=== PATIENT | male | born 1955 | race Caucasian/White ===

== ENCOUNTER 2021-06-02 11:03 | Inpatient (IN) | payer MEDICARE ==
[~2021-06-02] VITALS: Ht 172.7 cm; Wt 118.2 kg
[2021-06-02 13:05] LABS: BASOPHILS # (AUTO) 0.1 X10'3 (0-0.2); BASOPHILS % (AUTO) 0.8 % (0-1); EOSINOPHILS # (AUTO) 0.1 X10'3 (0-0.9); EOSINOPHILS % (AUTO) 0.9 % (0-6); HEMATOCRIT 44.4 % (42.0-52.0); HEMOGLOBIN 14.8 g/dl (14.0-17.9); LYMPHOCYTES # (AUTO) 1.4 X10'3 (1.1-4.8); LYMPHOCYTES % (AUTO) 13.9 % (21-51); MEAN CORPUSCULAR HEMOGLOBIN 30.9 PG (27.0-31.0); MEAN CORPUSCULAR HGB CONC 33.2 g/dL (33.0-36.5); MEAN PLATELET VOLUME 6.7 FL (7.4-10.4); MONOCYTES # (AUTO) 0.9 X10'3 (0-0.9); MONOCYTES % (AUTO) 8.9 % (2-12); NEUTROPHILS # (AUTO) 7.7 X10'3 (1.8-7.7); NEUTROPHILS % (AUTO) 75.5 % (42-75); PLATELET COUNT 380 X10'3 (140-440); RED BLOOD COUNT 4.78 X10'6 (4.70-6.10); RED CELL DISTRIBUTION WIDTH 12.9 % (11.5-14.5); WHITE BLOOD COUNT 10.1 X10'3 (4.5-11.0)
[2021-06-02 13:19] LABS: ALANINE AMINOTRANSFERASE 29 U/L (12-78); ALBUMIN 3.8 G/DL (3.4-5.0); ALKALINE PHOSPHATASE 83 IU/L (46-116); ANION GAP 11 (8-16); ASPARTATE AMINO TRANSFERASE 22 U/L (10-37); BILIRUBIN,TOTAL 0.9 MG/DL (0.1-1.0); BLOOD UREA NITROGEN 20 MG/DL (7-18); BUN/CREATININE RATIO 14.9 (5.4-32.0); CHLORIDE 105 MMOL/L (99-107); CREATININE 1.34 MG/DL (0.60-1.10); GLUCOSE 121 MG/DL (70-104); POTASSIUM 4.5 MMOL/L (3.5-5.1); SODIUM 142 MMOL/L (135-145); TOTAL CARBON DIOXIDE 26.1 MMOL/L (24-32); TOTAL PROTEIN 7.7 G/DL (6.4-8.2); eGFR 53 ML/MIN
[2021-06-02] MEDS ORDERED: ondansetron/PF 4mg/2ml inj IV ONE (13:50)
[2021-06-02] MEDS ORDERED: morphine 4 MG/ML inj SYRINge IV ONE (13:50)
[2021-06-02] MEDS ORDERED: ondansetron/PF 4mg/2ml inj IV PRN ×2 (14:05→16:05)
[2021-06-02] MEDS ORDERED: potassium Cl 40MEQ/1/2NS 520ml 520 ML IV PRN ×2 (14:05)
[2021-06-02] MEDS ORDERED: potassium Cl 20 mEq SR tablet PO PRN ×2 (14:05)
[2021-06-02] MEDS ORDERED: acetaminophen 325mg tablet PO PRN (14:05)
[2021-06-02] MEDS ORDERED: magnesium 4gm in 100ml NS 100 ML IV PRN (14:05)
[2021-06-02] MEDS ORDERED: magnesium hydroxide 30ml (MOM) UD suspension PO PRN (14:05)
[2021-06-02] MEDS ORDERED: mag hydrox/Alum hydrox/simeth 30ml oral suspension PO PRN (14:05)
[2021-06-02] MEDS ORDERED: magnesium 2GM in 50ml NS 50 ML IV PRN (14:05)
[2021-06-02] MEDS ORDERED: morphine 2 MG/ML inj. syringe IV PRN ×2 (14:05→16:05)
[2021-06-02] MEDS ORDERED: MISO200T62 PO (14:49)
[2021-06-02] MEDS ORDERED: DICL-211 PO (14:49)
[2021-06-02] MEDS ORDERED: LISI40TA13 PO (14:49)
[2021-06-02] MEDS ORDERED: ATOR40TA72 PO (14:49)
[2021-06-02] MEDS ORDERED: OMEP40CA21 PO (14:49)
[2021-06-02] MEDS ORDERED: BUPIVAcaine/PF 2.5 mg/ml (0.25%) 30ml vial ONE (15:30)
[2021-06-02] MEDS ORDERED: ringers solution, lacted 1,000 ML IV SCH (16:05)
[2021-06-02] MEDS ORDERED: proCHLORperazine 10 MG/2 ml inj IV PRN (16:05)
[2021-06-02] MEDS ORDERED: morphine 4 MG/ML inj SYRINge IV PRN (16:05)
[2021-06-02] MEDS ORDERED: meperidine/PF 25mg/ml syringe IV PRN ×3 (16:05)
--- NOTE | 2021-06-02 17:47 | NUR ---
7/10 PAIN MEDS GIVEN W/ ZOFRAN FOR NAUSEA
[2021-06-02 18:00] VITALS: BP 129/74
--- NOTE | 2021-06-02 19:07 | NUR ---
REPORT RECEIVED FROM JOSHUA COUGHLIN IN OR AND PATIENT IS IN THE ROOM WAITING FOR DOCTOR PARIS TO PERFORM SURGERY. WE WILL CONTINUE TO MONITOR.
[2021-06-02] MEDS: docusate sod 100mg capsule PO SCH (19:49)
[2021-06-02] MEDS: K and/or MAG REPLACEMENT MC SCH (20:53)
[2021-06-02 20:54] LABS: PARTIAL THROMBOPLASTIN TIME 27 SECONDS (22-32)
[2021-06-02] MEDS: morphine 2 MG/ML inj. syringe IV PRN (21:25)
[2021-06-02] MEDS: normal saline 1000ml 1,000 ML IV SCH (21:25)
[2021-06-03] VITALS (24 sets, daily range): BP systolic 88–153; BP diastolic 48–81
[2021-06-03] MEDS: normal saline 1000ml 1,000 ML IV SCH ×3 (00:05→19:52)
--- NOTE | 2021-06-03 06:15 | NUR ---
Problems reprioritized. Patient report given, questions answered & plan of care reviewed with JESSICA COUGHLIN.
--- NOTE | 2021-06-03 06:57 | NUR ---
Patient in room [facility] 345. I have received report from Ak[facility]il [facility] and had the opportunity to ask questions and assume patient care.
[2021-06-03 07:22] LABS: BASOPHILS % (AUTO) 0.5 % (0-1); EOSINOPHILS # (AUTO) 0.3 X10'3 (0-0.9); EOSINOPHILS % (AUTO) 3.8 % (0-6); HEMATOCRIT 40.3 % (42.0-52.0); HEMOGLOBIN 13.9 g/dl (14.0-17.9); LYMPHOCYTES # (AUTO) 1.6 X10'3 (1.1-4.8); LYMPHOCYTES % (AUTO) 17.9 % (21-51); MEAN CORPUSCULAR HEMOGLOBIN 31.8 PG (27.0-31.0); MEAN CORPUSCULAR HGB CONC 34.6 g/dL (33.0-36.5); MEAN CORPUSCULAR VOLUME 91.9 FL (78-98); MEAN PLATELET VOLUME 6.6 FL (7.4-10.4); MONOCYTES # (AUTO) 0.9 X10'3 (0-0.9); MONOCYTES % (AUTO) 9.5 % (2-12); NEUTROPHILS # (AUTO) 6.2 X10'3 (1.8-7.7); NEUTROPHILS % (AUTO) 68.3 % (42-75); PLATELET COUNT 323 X10'3 (140-440); RED BLOOD COUNT 4.38 X10'6 (4.70-6.10); RED CELL DISTRIBUTION WIDTH 12.7 % (11.5-14.5); WHITE BLOOD COUNT 9.1 X10'3 (4.5-11.0)
[2021-06-03] MEDS: docusate sod 100mg capsule PO SCH ×2 (08:00→21:29)
[2021-06-03] MEDS: K and/or MAG REPLACEMENT MC SCH ×2 (08:00→19:28)
[2021-06-03 08:32] LABS: ALANINE AMINOTRANSFERASE 26 U/L (12-78); ALBUMIN 3.5 G/DL (3.4-5.0); ALKALINE PHOSPHATASE 82 IU/L (46-116); ANION GAP 9 (8-16); ASPARTATE AMINO TRANSFERASE 15 U/L (10-37); BILIRUBIN,TOTAL 1.1 MG/DL (0.1-1.0); BLOOD UREA NITROGEN 25 MG/DL (7-18); BUN/CREATININE RATIO 16.2 (5.4-32.0); CALCIUM 8.7 MG/DL (8.5-10.1); CHLORIDE 108 MMOL/L (99-107); CREATININE 1.54 MG/DL (0.60-1.10); GLUCOSE 110 MG/DL (70-104); MAGNESIUM 2.2 MG/DL (1.5-2.4); POTASSIUM 4.3 MMOL/L (3.5-5.1); SODIUM 143 MMOL/L (135-145); TOTAL CARBON DIOXIDE 25.6 MMOL/L (24-32); eGFR 45 ML/MIN
[2021-06-03] MEDS ORDERED: BUPIVAcaine/PF 2.5 mg/ml (0.25%) 30ml vial ONE ×2 (08:52→09:51)
[2021-06-03] MEDS ORDERED: midazolam 1 mg/ML 2ml injection ONE ×2 (08:55→10:25)
[2021-06-03] MEDS ORDERED: acetaminophen 1,000mg/100ml IV 100 ML IV PRN (09:10)
[2021-06-03] MEDS ORDERED: meperidine/PF 25mg/ml syringe IV PRN ×3 (09:10)
[2021-06-03] MEDS ORDERED: morphine 4 MG/ML inj SYRINge IV PRN (09:10)
[2021-06-03] MEDS ORDERED: labetalol 20mg/4ml (5mg/ml) syringe IV PRN (09:10)
[2021-06-03] MEDS ORDERED: ringers solution, lacted 1,000 ML IV SCH ×2 (09:10→16:05)
[2021-06-03] MEDS ORDERED: proCHLORperazine 10 MG/2 ml inj IV PRN (09:10)
[2021-06-03] MEDS ORDERED: ondansetron/PF 4mg/2ml inj IV PRN ×2 (09:10→16:05)
[2021-06-03] MEDS ORDERED: hydrALAZINE 20mg/ml inj. IV PRN (09:10)
[2021-06-03] MEDS ORDERED: morphine 2 MG/ML inj. syringe IV PRN (09:10)
[2021-06-03] MEDS ORDERED: pneumococcal 23-VAL P-sac vacc 25 mcg/0.5ml vial IMVAC ONE (10:00)
[2021-06-03] MEDS ORDERED: LIDOcaine 1% (10mg/ml) 2ml vial ONE (10:19)
[2021-06-03] MEDS ORDERED: fentaNYL /PF 50mcg/ml 5ml ampule ONE ×2 (10:25→13:55)
[2021-06-03] MEDS ORDERED: rocuronium 10mg/ml inj IV ONE ×2 (11:12→11:22)
[2021-06-03] MEDS ORDERED: ondansetron/PF 4mg/2ml inj ONE (11:12)
[2021-06-03] MEDS ORDERED: ceFAZolin 1000mg inj ONE ×3 (11:12)
[2021-06-03] MEDS ORDERED: phenylephrine 10mg/ml inj. ONE (11:12)
[2021-06-03] MEDS ORDERED: dexamethasone sod phosphate 4mg/ml inj. ONE (11:12)
[2021-06-03] MEDS ORDERED: propofol inj 20 ML IV ONE (11:12)
[2021-06-03] MEDS ORDERED: LIDOcaine 2% (20mg/ml) 5ml vial ONE (11:12)
[2021-06-03] MEDS ORDERED: albumin (Human) 5% 250ml 250 ML IV ONE ×2 (11:49)
[2021-06-03] MEDS ORDERED: morphine 10mg/ml inj. ONE (13:41)
[2021-06-03] MEDS ORDERED: BUPIVACAINE liposomal/PF 13.3 MG/ML vial IM ONE (13:48)
[2021-06-03] MEDS ORDERED: neostigmine methylsulfate 1 MG/ML 10ml vial ONE (13:51)
[2021-06-03] MEDS ORDERED: glycopyrrolate 0.2mg/ml inj ONE (13:51)
[2021-06-03] MEDS ORDERED: acetaminophen 1,000mg/100ml IV 100 ML IV ONE (13:53)
[2021-06-03] MEDS ORDERED: sugammadex 200mg/2ml injection IV ONE (14:37)
--- NOTE | 2021-06-03 14:48 | NUR ---
Received from OR via , accompanied by Anesthesiologist DR IRWIN and report given by Anesthesiolgist. AWAKENS TO VOICE. VITALS STABLE. DRESSING DI. TRUMAN WITH SM AMNT OF RED DRAINAGE IN THE BULB. NG TO LCS. CHEN WITH CLEAR URINE.
[2021-06-03] MEDS ORDERED: ipratropium/albuterol 3ml nebule IH ONE (16:05)
[2021-06-03] MEDS ORDERED: furosemide 20 MG/2 ML vial IV ONE (16:10)
--- NOTE | 2021-06-03 16:58 | NUR ---
Report called to receiving nurse. Transferred via BED Belongings . Special Issues communicated to receiving nurse. AWAKE AND ORIENTED. VITALS STABLE. DRESSING DI. SID PAIN. TO SURGICAL RM 345A AT THIS TIME.
[2021-06-03] MEDS: piperacillin/tazo 3.375gm/50ml 50 ML IV SCH (17:30)
--- NOTE | 2021-06-03 18:25 | NUR ---
Problems reprioritized. Patient report given, questions answered & plan of care reviewed with Prudence RN.
--- NOTE | 2021-06-03 19:24 | NUR ---
Patient in room [facility] 345. I have received report from JESSICA COUGHLIN and had the opportunity to ask questions and assume patient care.
[2021-06-03] MEDS: morphine 2 MG/ML inj. syringe IV PRN (21:28)
[2021-06-04] VITALS: BP 91/57
[2021-06-04] MEDS: piperacillin/tazo 3.375gm/50ml 50 ML IV SCH ×3 (00:33→15:21)
[2021-06-04] MEDS: morphine 2 MG/ML inj. syringe IV PRN ×2 (01:34→19:13)
[2021-06-04] MEDS: normal saline 1000ml 1,000 ML IV SCH ×3 (03:52→17:19)
[2021-06-04 04:00] VITALS: BP 102/64
[2021-06-04 06:19] LABS: BASOPHILS % (AUTO) 0.1 % (0-1); EOSINOPHILS % (AUTO) 0.1 % (0-6); HEMATOCRIT 31.7 % (42.0-52.0); HEMOGLOBIN 10.8 g/dl (14.0-17.9); LYMPHOCYTES % (AUTO) 9.5 % (21-51); MEAN CORPUSCULAR HEMOGLOBIN 31.8 PG (27.0-31.0); MEAN CORPUSCULAR HGB CONC 33.9 g/dL (33.0-36.5); MEAN CORPUSCULAR VOLUME 93.8 FL (78-98); MEAN PLATELET VOLUME 6.8 FL (7.4-10.4); MONOCYTES # (AUTO) 1.9 X10'3 (0-0.9); NEUTROPHILS % (AUTO) 73.3 % (42-75); PLATELET COUNT 402 X10'3 (140-440); RED BLOOD COUNT 3.38 X10'6 (4.70-6.10); RED CELL DISTRIBUTION WIDTH 12.9 % (11.5-14.5); WHITE BLOOD COUNT 10.9 X10'3 (4.5-11.0)
--- NOTE | 2021-06-04 06:33 | NUR ---
Problems reprioritized. Patient report given, questions answered & plan of care reviewed with JESSICA COUGHLIN.
--- NOTE | 2021-06-04 06:35 | NUR ---
Patient in room [facility] 345. I have received report from angélica house and had the opportunity to ask questions and assume patient care.
[2021-06-04 06:50] LABS: ALANINE AMINOTRANSFERASE 30 U/L (12-78); ALKALINE PHOSPHATASE 55 IU/L (46-116); ANION GAP 10 (8-16); ASPARTATE AMINO TRANSFERASE 36 U/L (10-37); BILIRUBIN,TOTAL 0.9 MG/DL (0.1-1.0); BLOOD UREA NITROGEN 36 MG/DL (7-18); BUN/CREATININE RATIO 13.7 (5.4-32.0); CALCIUM 7.9 MG/DL (8.5-10.1); CHLORIDE 108 MMOL/L (99-107); CREATININE 2.62 MG/DL (0.60-1.10); GLUCOSE 146 MG/DL (70-104); POTASSIUM 5.1 MMOL/L (3.5-5.1); SODIUM 143 MMOL/L (135-145); TOTAL CARBON DIOXIDE 24.6 MMOL/L (24-32); TOTAL PROTEIN 6.1 G/DL (6.4-8.2); eGFR 25 ML/MIN
[2021-06-04 07:26] LABS: PLATELET ESTIMATE NORMAL; TOTAL CELLS COUNTED 100
[2021-06-04 08:00] VITALS: BP 98/65
[2021-06-04] MEDS: K and/or MAG REPLACEMENT MC SCH ×2 (08:00→20:00)
[2021-06-04] MEDS: pantoprazole 40mg Tablet.DR PO SCH (08:58)
[2021-06-04] MEDS: docusate sod 100mg capsule PO SCH (08:59)
[2021-06-04] MEDS: atorvastatin 20mg tablet PO SCH (09:00)
[2021-06-04 11:00] VITALS: BP 104/65
--- NOTE | 2021-06-04 11:11 | NUR ---
FC DC'd per hospitalist order. 150cc's yellow urine drained. Pt tolerated well. Education provided regarding post FC removal. Pt stated understanding and willingness to comply.
[2021-06-04] MEDS: acetaminophen 325mg tablet PO PRN (12:08)
[2021-06-04] MEDS: nystatin 15 GM powder TP SCH ×2 (12:09→22:37)
[2021-06-04] MEDS ORDERED: ciprofloxacin lact 400MG/200ML 200 ML IV SCH (17:00)
[2021-06-04] MEDS: metroNIDAZOLE 500mg tablet PO SCH ×2 (17:15→22:29)
[2021-06-04 18:00] VITALS: BP 120/77
[2021-06-04] MEDS ORDERED: metroNIDAZOLE-Flagyl 500mg/NS 100 ML IV SCH (20:00)
[2021-06-04] MEDS: ciprofloxacin 250mg tablet PO SCH (22:29)
[2021-06-05] VITALS: BP 95/52
[2021-06-05] MEDS: normal saline 1000ml 1,000 ML IV SCH ×3 (00:29→16:58)
[2021-06-05] MEDS: heparin, porcine 5000 units/ml vial SQ SCH ×4 (00:38→23:17)
[2021-06-05] MEDS: morphine 2 MG/ML inj. syringe IV PRN ×3 (00:42→23:19)
--- NOTE | 2021-06-05 06:06 | NUR ---
Problems reprioritized. Patient report given, questions answered & plan of care reviewed with Chelsea COUGHLIN.
[2021-06-05 06:23] LABS: BASOPHILS % (AUTO) 0.1 % (0-1); EOSINOPHILS % (AUTO) 0.1 % (0-6); HEMATOCRIT 26.6 % (42.0-52.0); MEAN CORPUSCULAR HEMOGLOBIN 31.8 PG (27.0-31.0); MEAN CORPUSCULAR VOLUME 93.4 FL (78-98); MEAN PLATELET VOLUME 7.1 FL (7.4-10.4); MONOCYTES # (AUTO) 1.8 X10'3 (0-0.9); MONOCYTES % (AUTO) 14.4 % (2-12); NEUTROPHILS # (AUTO) 9.6 X10'3 (1.8-7.7); NEUTROPHILS % (AUTO) 77.4 % (42-75); PLATELET COUNT 346 X10'3 (140-440); RED BLOOD COUNT 2.85 X10'6 (4.70-6.10); RED CELL DISTRIBUTION WIDTH 12.7 % (11.5-14.5); WHITE BLOOD COUNT 12.4 X10'3 (4.5-11.0)
--- NOTE | 2021-06-05 06:31 | NUR ---
Patient in room [facility] 345. I have received report from CORONA COUGHLIN and had the opportunity to ask questions and assume patient care.
--- NOTE | 2021-06-05 06:33 | NUR ---
Problems reprioritized. Patient report given, questions answered & plan of care reviewed with JESSICA COUGHLIN.
[2021-06-05 06:43] LABS: ALANINE AMINOTRANSFERASE 29 U/L (12-78); ALBUMIN 2.7 G/DL (3.4-5.0); ALBUMIN/GLOBULIN RATIO 0.7 (1.1-1.5); ALKALINE PHOSPHATASE 58 IU/L (46-116); ANION GAP 11 (8-16); ASPARTATE AMINO TRANSFERASE 57 U/L (10-37); BILIRUBIN,TOTAL 0.9 MG/DL (0.1-1.0); BLOOD UREA NITROGEN 41 MG/DL (7-18); CALCIUM 7.6 MG/DL (8.5-10.1); CHLORIDE 108 MMOL/L (99-107); CREATININE 1.86 MG/DL (0.60-1.10); GLUCOSE 133 MG/DL (70-104); POTASSIUM 4.7 MMOL/L (3.5-5.1); SODIUM 144 MMOL/L (135-145); TOTAL CARBON DIOXIDE 24.7 MMOL/L (24-32); TOTAL PROTEIN 6.6 G/DL (6.4-8.2); eGFR 37 ML/MIN
[2021-06-05 08:00] VITALS: BP 116/65
[2021-06-05] MEDS: K and/or MAG REPLACEMENT MC SCH ×2 (08:00→20:00)
[2021-06-05] MEDS: pantoprazole 40mg Tablet.DR PO SCH (08:28)
[2021-06-05] MEDS: metroNIDAZOLE 500mg tablet PO SCH ×3 (08:28→21:07)
[2021-06-05] MEDS: atorvastatin 20mg tablet PO SCH (08:28)
[2021-06-05] MEDS: nystatin 15 GM powder TP SCH ×3 (08:30→21:07)
[2021-06-05] MEDS: ciprofloxacin 250mg tablet PO SCH ×2 (09:39→21:07)
--- NOTE | 2021-06-05 10:42 | NUR ---
ng removed per md order, will continue to monitor
[2021-06-05 11:00] VITALS: BP 117/67
--- NOTE | 2021-06-05 17:10 | NUR ---
Pt ambulated multiple times this shift, pt states he has not passed gas. Patient has voided x4 times this shift. Will continue to monitor
[2021-06-05 18:00] VITALS: BP 127/74
--- NOTE | 2021-06-05 18:30 | NUR ---
Patient in room [facility] 345. I have received report from CED LOPEZ and had the opportunity to ask questions and assume patient care. Addendum: 06/05/21 at 1924 by Sarah Marquez RN Amended: Links added.
--- NOTE | 2021-06-05 18:54 | NUR ---
Problems reprioritized. Patient report given, questions answered & plan of care reviewed with [facility]i [facility].
--- NOTE | 2021-06-05 22:55 | NUR ---
Pt states anxious, feels "bloated" oob amb around unit x1 pt states feelis better getting up. States would like something forpain and anxiety if ordered. linekhalif stahl pt inc of urine in bed. Addendum: 06/05/21 at 2311 by Renita Vazquez RN Amended: Links added.
--- NOTE | 2021-06-05 23:40 | NUR ---
LOW ABD DRESSING REINFORCED WITH ABD PAD AND 3INCH TAPE DUE TO SEROSANGINOUS DRAINAGE AFTER SITTING UP IN CHAIR AFTER AMBULATION.
[2021-06-06] VITALS: BP 124/72
[2021-06-06] MEDS: normal saline 1000ml 1,000 ML IV SCH ×2 (05:19→19:02)
--- NOTE | 2021-06-06 05:23 | NUR ---
ambulated 3 full laps this am total of 6 whole laps this shift. with walker and 02. pt tolerated well. no flatus at this time.
--- NOTE | 2021-06-06 06:12 | NUR ---
Student documentation: I have reviewed and agree with all interventions, assessments performed and documented by ELI JIMÉNEZ RN STUDENT.Student Medication Administration: For this medication-pass time frame, all medication were reviewed, dispensed, administered and documented per hospital policy by GRETTA FARRELL RN STUDENT. Addendum: 06/06/21 at 0613 by Sarah Marquez RN Amended: Links added.
--- NOTE | 2021-06-06 06:24 | NUR ---
Problems reprioritized. Patient report given, questions answered & plan of care reviewed with SHERON COUGHLIN. Addendum: 06/06/21 at 0625 by Sarah Marquez RN Amended: Links added.
[2021-06-06 06:51] LABS: ALANINE AMINOTRANSFERASE 23 U/L (12-78); ALBUMIN 2.6 G/DL (3.4-5.0); ALBUMIN/GLOBULIN RATIO 0.7 (1.1-1.5); ALKALINE PHOSPHATASE 61 IU/L (46-116); ANION GAP 12 (8-16); ASPARTATE AMINO TRANSFERASE 43 U/L (10-37); BASOPHILS % (AUTO) 0.2 % (0-1); BILIRUBIN,TOTAL 0.6 MG/DL (0.1-1.0); BLOOD UREA NITROGEN 29 MG/DL (7-18); CALCIUM 8.2 MG/DL (8.5-10.1); CHLORIDE 109 MMOL/L (99-107); CREATININE 1.32 MG/DL (0.60-1.10); EOSINOPHILS # (AUTO) 0.1 X10'3 (0-0.9); EOSINOPHILS % (AUTO) 0.8 % (0-6); GLUCOSE 159 MG/DL (70-104); HEMATOCRIT 24.3 % (42.0-52.0); HEMOGLOBIN 8.3 g/dl (14.0-17.9); LYMPHOCYTES # (AUTO) 1.1 X10'3 (1.1-4.8); MAGNESIUM 2.4 MG/DL (1.5-2.4); MEAN CORPUSCULAR HGB CONC 34.1 g/dL (33.0-36.5); MEAN CORPUSCULAR VOLUME 93.7 FL (78-98); MEAN PLATELET VOLUME 6.9 FL (7.4-10.4); NEUTROPHILS # (AUTO) 9.8 X10'3 (1.8-7.7); PLATELET COUNT 354 X10'3 (140-440); POTASSIUM 4.3 MMOL/L (3.5-5.1); RED BLOOD COUNT 2.59 X10'6 (4.70-6.10); RED CELL DISTRIBUTION WIDTH 12.8 % (11.5-14.5); SODIUM 145 MMOL/L (135-145); TOTAL CARBON DIOXIDE 23.9 MMOL/L (24-32); TOTAL PROTEIN 6.5 G/DL (6.4-8.2); eGFR 54 ML/MIN
[2021-06-06 08:00] VITALS: BP 139/64
[2021-06-06] MEDS: K and/or MAG REPLACEMENT MC SCH ×2 (08:00→20:00)
[2021-06-06] MEDS: atorvastatin 20mg tablet PO SCH (08:28)
[2021-06-06] MEDS: pantoprazole 40mg Tablet.DR PO SCH (08:28)
[2021-06-06] MEDS: metroNIDAZOLE 500mg tablet PO SCH (08:28)
[2021-06-06] MEDS: nystatin 15 GM powder TP SCH ×3 (08:31→22:09)
[2021-06-06] MEDS: heparin, porcine 5000 units/ml vial SQ SCH ×2 (08:31→16:17)
[2021-06-06] MEDS: ciprofloxacin 250mg tablet PO SCH (11:35)
[2021-06-06 12:00] VITALS: BP 140/74
--- NOTE | 2021-06-06 14:30 | NUR ---
Patient is not wanting to take Flagyl currently, states that he will take it in a little while. Addendum: 06/06/21 at 1619 by Amy Narvaez RN Patient refused Flagyl.
[2021-06-06 20:00] VITALS: BP 138/71
--- NOTE | 2021-06-06 23:25 | NUR ---
charge notified pt c/o wheezing lungs clear noted it in epigoltis area. Md called and orders for cxr done and resp tx after I/S. unit given and pt teaching done to use it. Rt also did teaching in regard to this.
[2021-06-06] MEDS ORDERED: ipratropium/albuterol 3ml nebule NEB PRN (23:50)
[2021-06-07] VITALS: BP 136/73
--- NOTE | 2021-06-07 00:05 | NUR ---
chest xray done and completed on pt and Rt in to evaluate him and give him respiratory tx.
[2021-06-07] MEDS: heparin, porcine 5000 units/ml vial SQ SCH ×3 (00:53→16:28)
[2021-06-07] MEDS: morphine 2 MG/ML inj. syringe IV PRN (00:54)
--- NOTE | 2021-06-07 03:42 | NUR ---
pt resting appears comfortable.
--- NOTE | 2021-06-07 04:05 | NUR ---
pt awake assisted in using urinal and void 350cc cl yellow urine. pt edematous scrotum elevated with pillow case and towel. took water after that.
[2021-06-07 06:21] LABS: BASOPHILS # (AUTO) 0.1 X10'3 (0-0.2); BASOPHILS % (AUTO) 0.9 % (0-1); EOSINOPHILS # (AUTO) 0.4 X10'3 (0-0.9); EOSINOPHILS % (AUTO) 3.1 % (0-6); HEMATOCRIT 24.7 % (42.0-52.0); HEMOGLOBIN 8.3 g/dl (14.0-17.9); LYMPHOCYTES # (AUTO) 1.6 X10'3 (1.1-4.8); LYMPHOCYTES % (AUTO) 14.2 % (21-51); MEAN CORPUSCULAR HEMOGLOBIN 31.4 PG (27.0-31.0); MEAN CORPUSCULAR HGB CONC 33.6 g/dL (33.0-36.5); MEAN CORPUSCULAR VOLUME 93.6 FL (78-98); MEAN PLATELET VOLUME 7.2 FL (7.4-10.4); MONOCYTES # (AUTO) 1.1 X10'3 (0-0.9); MONOCYTES % (AUTO) 9.6 % (2-12); NEUTROPHILS # (AUTO) 8.3 X10'3 (1.8-7.7); NEUTROPHILS % (AUTO) 72.2 % (42-75); PLATELET COUNT 426 X10'3 (140-440); RED BLOOD COUNT 2.64 X10'6 (4.70-6.10); RED CELL DISTRIBUTION WIDTH 12.7 % (11.5-14.5); WHITE BLOOD COUNT 11.5 X10'3 (4.5-11.0)
[2021-06-07 06:24] LABS: ALANINE AMINOTRANSFERASE 30 U/L (12-78); ALBUMIN 2.5 G/DL (3.4-5.0); ALBUMIN/GLOBULIN RATIO 0.6 (1.1-1.5); ALKALINE PHOSPHATASE 70 IU/L (46-116); ANION GAP 9 (8-16); ASPARTATE AMINO TRANSFERASE 38 U/L (10-37); BILIRUBIN,TOTAL 0.5 MG/DL (0.1-1.0); BLOOD UREA NITROGEN 25 MG/DL (7-18); BUN/CREATININE RATIO 20.8 (5.4-32.0); CALCIUM 8.6 MG/DL (8.5-10.1); CHLORIDE 111 MMOL/L (99-107); GLUCOSE 115 MG/DL (70-104); MAGNESIUM 2.5 MG/DL (1.5-2.4); POTASSIUM 4.4 MMOL/L (3.5-5.1); SODIUM 146 MMOL/L (135-145); TOTAL CARBON DIOXIDE 26.3 MMOL/L (24-32); TOTAL PROTEIN 6.6 G/DL (6.4-8.2); eGFR 61 ML/MIN
--- NOTE | 2021-06-07 06:35 | NUR ---
Patient in room [facility] 345. I have received report from Leida COUGHLIN and had the opportunity to ask questions and assume patient care.
[2021-06-07] MEDS: normal saline 1000ml 1,000 ML IV SCH (06:49)
--- NOTE | 2021-06-07 06:56 | NUR ---
Problems reprioritized. Patient report given, questions answered & plan of care reviewed with FELIPE COUGHLIN. Addendum: 06/07/21 at 0658 by Sarah Marquez RN Amended: Links added.
--- NOTE | 2021-06-07 06:57 | NUR ---
Patient in room [facility] 345. I have received report from Sarah COUGHLIN and had the opportunity to ask questions and assume patient care.
[2021-06-07] MEDS: atorvastatin 20mg tablet PO SCH (07:25)
[2021-06-07] MEDS: pantoprazole 40mg Tablet.DR PO SCH (07:27)
[2021-06-07] MEDS: nystatin 15 GM powder TP SCH ×3 (07:29→20:56)
[2021-06-07 08:00] VITALS: BP 141/70
[2021-06-07] MEDS: K and/or MAG REPLACEMENT MC SCH ×2 (08:00→20:00)
[2021-06-07] MEDS ORDERED: bisacodyl 10mg suppository rectal RC PRN (08:50)
[2021-06-07] MEDS ORDERED: furosemide 10 MG/1 ML 10ml inj IV ONE (09:15)
[2021-06-07 09:48] LABS: PLATELET ESTIMATE NORMAL; TOTAL CELLS COUNTED 100
[2021-06-07 10:00] VITALS: BP 136/70
--- NOTE | 2021-06-07 10:10 | NUR ---
Pt c/o SOB after quickly ambulating and getting situated in bed, and administering suppository. O2 3L NC on, Lasix given per orders. Pt states he feels anxious but calmed after med administration and slow deep breaths in thru nose, out thru mouth. O2 Sats 93%-94%. Will continue to monitor.l
[2021-06-07 11:00] VITALS: BP 137/81
--- NOTE | 2021-06-07 12:01 | NUR ---
gave report to Leida COUGHLIN
--- NOTE | 2021-06-07 12:15 | NUR ---
Patient in room [facility] 345. I have received report from Leida and had the opportunity to ask questions and assume patient care.
--- NOTE | 2021-06-07 13:00 | NUR ---
Initial: Pt admitted w/ increasing abd pain, found to have periumbilical hernia w/ SBO per EMR. Pt underwent small bowel resection and hernia repair 06/03. Pt placed on full liquid diet 06/06 w/ avg 65% of last two meals. Recommend advance to Regular diet per MD discretion. Pt may benefit from Winston smoothie BID to aid wound healing. LBM 05/28. Will continue to monitor and make recommendations as appropriate. Recs: 1. Advance to Regular diet per MD 2. Winston smoothie BID BD; pending MD approval 3. Bowel care per MD 4. Weekly wts Addendum: 06/07/21 at [address] Amended: Links added.
--- NOTE | 2021-06-07 13:40 | NUR ---
1320 Lying in bed, Pt c/o feeling SOB/anxious. Denies pain, O2 sats 94% on 2L NC, increased to 3L with O2 Sats 97%. L lung diminshed, R lung clear, some expiratory wheezing in upper airway, cleared when pt coughed. Patient wanted to sit up in chair and states he fees better now and can breath easier. Paged RT for PRN treatment. Will continue to monitor.
--- NOTE | 2021-06-07 17:05 | NUR ---
acting as clinical instructor, i reviewed student nurse charting
[2021-06-07] MEDS ORDERED: JUVEN Smoothie Arginine/Glut./Ca2+Bmb (Juven 19.3pkt) 240ml cup PO SCH (17:30)
--- NOTE | 2021-06-07 18:09 | NUR ---
Problems reprioritized. Patient report given to CED Casarez questions answered & plan of care reviewed with CED Casarez.
--- NOTE | 2021-06-07 18:40 | NUR ---
Problems reprioritized. Patient report given, questions answered & plan of care reviewed with Sarah COUGHLIN.
--- NOTE | 2021-06-07 19:04 | NUR ---
Patient in room [facility] 345. I have received report from FELIPE COUGHLIN and had the opportunity to ask questions and assume patient care. Addendum: 06/07/21 at 1905 by Sarah Marquez RN Amended: Links added.
[2021-06-07 20:00] VITALS: BP 166/76
[2021-06-07] MEDS: magnesium hydroxide 30ml (MOM) UD suspension PO SCH (20:55)
[2021-06-07] MEDS: furosemide 40mg/4ml inj IV SCH (20:55)
[2021-06-08] VITALS: BP 128/73
[2021-06-08] MEDS: heparin, porcine 5000 units/ml vial SQ SCH ×2 (01:53→08:37)
--- NOTE | 2021-06-08 05:13 | NUR ---
pt c/o pain and medicated for it with tylenol for discomfort per request
[2021-06-08] MEDS: acetaminophen 325mg tablet PO PRN (05:15)
--- NOTE | 2021-06-08 06:15 | NUR ---
Problems reprioritized. Patient report given, questions answered & plan of care reviewed with PARISA COUGHLIN. Addendum: 06/08/21 at 0713 by Sarah Marquez RN Amended: Links added.
[2021-06-08 07:00] VITALS: BP 118/51
[2021-06-08] MEDS: K and/or MAG REPLACEMENT MC SCH (08:00)
[2021-06-08] MEDS: magnesium hydroxide 30ml (MOM) UD suspension PO SCH (08:36)
[2021-06-08] MEDS: furosemide 40mg/4ml inj IV SCH (08:36)
[2021-06-08] MEDS: pantoprazole 40mg Tablet.DR PO SCH (08:36)
[2021-06-08] MEDS: atorvastatin 20mg tablet PO SCH (08:37)
[2021-06-08] MEDS: nystatin 15 GM powder TP SCH ×2 (08:37→13:00)
[2021-06-08 09:31] LABS: ALBUMIN 2.7 G/DL (3.4-5.0); BLOOD UREA NITROGEN 28 MG/DL (7-18); BUN/CREATININE RATIO 20.1 (5.4-32.0); CALCIUM 8.8 MG/DL (8.5-10.1); CREATININE 1.39 MG/DL (0.60-1.10); GLUCOSE 156 MG/DL (70-104); eGFR 51 ML/MIN
[2021-06-08 09:40] LABS: ANION GAP 6 (8-16); CHLORIDE 108 MMOL/L (99-107); POTASSIUM 4.1 MMOL/L (3.5-5.1); SODIUM 144 MMOL/L (135-145)
[2021-06-08 11:00] VITALS: BP 130/75
--- NOTE | 2021-06-08 12:13 | NUR ---
Paged Dr. Crzu PAGER ID: [phone] MESSAGE: Surgical Oscar RN ext [phone]. RE: David Bauer. Dr. Leal said patient can go home today with TRUMAN drain and follow up within 1 week.
[2021-06-08] MEDS ORDERED: FURO40TA4 PO (12:18)
[2021-06-08] MEDS ORDERED: CEPH500C2 PO (13:02)
--- NOTE | 2021-06-08 13:04 | NUR ---
Dr Leal requested that patient receive Antibiotic on discharge. Dr Leal ordered Keflex 500 mg PO Q6H #40. I advised primary RN and put medication in patients discharge. Primary RN Oscar will call into pharmacy.
--- NOTE | 2021-06-08 13:18 | NUR ---
TRUMAN drain care demonstrated to patient, patient verbalized understanding of all instructions given. Patient states "my is a PA so she knows about this too!"Instructed patient to report to the surgeon if he notice his TRUMAN drain output is significantly high. Encourage him to record the TRUMAN drain and record them.
--- NOTE | 2021-06-08 13:32 | NUR ---
Surgical abdominal wound dressing changed today, tiffanie intact. minimal amount of serosanguineous drainage on the lower portion of abdominal incision.
--- NOTE | 2021-06-08 14:29 | NUR ---
Discharge instructions given to patient, patient verbalized understanding of all the instructions. Peripheral IV removed, tip intact. New prescriptions were called in to his pharmacy of choice. Instructed patient to ensure he has all his belongings with him before leaving the hospital. A new small calibrated container to drain the TRUMAN was given to patient. Awaiting for his ride
== END 2021-06-08 15:05 | disposition home or self-care (01) | DRG 329 ==
LOC: ER 11:04 → ED HOLD 14:08 → SUR 3N 18:43
PROVIDERS: ADMIT Family Medicine; ATTEND Family Medicine
PROC: 0DNW0ZZ Release Peritoneum, Open Approach (ICD-10-PCS; 2021-06-03)
PROC: 0WQF0ZZ Repair Abdominal Wall, Open Approach (ICD-10-PCS; 2021-06-03)
PROC: 3E0234Z Introduction of Serum, Toxoid and Vaccine into Muscle, Percutaneous Approach (ICD-10-PCS; 2021-06-03)
PROC: 0DB80ZZ Excision of Small Intestine, Open Approach (ICD-10-PCS; principal; 2021-06-03 10:32)
DX: K43.0 Incisional hernia with obstruction, without gangrene (principal); N17.0 Acute kidney failure with tubular necrosis; J96.01 Acute respiratory failure with hypoxia; D62 Acute posthemorrhagic anemia; J98.11 Atelectasis; K56.7 Ileus, unspecified; E66.01 Morbid (severe) obesity due to excess calories; E78.5 Hyperlipidemia, unspecified; M54.9 Dorsalgia, unspecified; K42.0 Umbilical hernia with obstruction, without gangrene; I11.0 Hypertensive heart disease with heart failure; I27.81 Cor pulmonale (chronic); I50.9 Heart failure, unspecified; N28.9 Disorder of kidney and ureter, unspecified; K66.0 Peritoneal adhesions (postprocedural) (postinfection); Z79.899 Other long term (current) drug therapy; Z86.79 Personal history of other diseases of the circulatory system; Z80.1 Family history of malignant neoplasm of trachea, bronchus and lung; Z68.39 Body mass index [BMI] 39.0-39.9, adult; Z23 Encounter for immunization; Z88.2 Allergy status to sulfonamides; Z90.49 Acquired absence of other specified parts of digestive tract
CPT/HCPCS: 36415; 71045; 80048; 80053; 82948; 83735; 83880; 85007; 85025; 85610; 85730; 86885; 86900; 86901; 87081; 88302; 88307; 93005; 94640; 94760; 96374; 96375; 99285; A4618; A6258; A7000; C9290; C9399; G0378; J0131; J0690; J1100; J1644; J1940; J2001; J2175; J2250; J2270; J2370; J2405; J2543; J2704; J2710; J3010; J3490; J7030; J7120; P9045

== ENCOUNTER 2021-06-25 02:04 | Inpatient (IN) | payer MEDICARE, OTHER ==
[~2021-06-25] VITALS: Ht 168.9 cm; Wt 115.0 kg
[~2021-06-25 02:04] MED LIST: ATOR40TA72 PO; CEPH500C2 PO; DICL-211 PO; FURO40TA4 PO; LISI40TA13 PO; OMEP40CA21 PO
[2021-06-25 03:45] VITALS: BP 134/77
--- NOTE | 2021-06-25 04:24 | NUR ---
unmanned aircraft systems roboticist, Tanesha received report on patient from [facility] from Clint Ryan RN at 0200 on 06/25/21. VSS
--- NOTE | 2021-06-25 04:26 | NUR ---
Patient arrived on floor at 0345 by ambulance on [facility] from [facility]. VSS [id number]
--- NOTE | 2021-06-25 05:41 | NUR ---
Dr Edwards was notified of patient's arrival and he came and assessed the patient. Awaiting orders.
[2021-06-25] MEDS ORDERED: diphenhydrAMINE 50 mg/ml inj IV PRN (05:45)
[2021-06-25] MEDS ORDERED: bisacodyl 10mg suppository rectal RC PRN (05:45)
[2021-06-25] MEDS ORDERED: mag hydrox/Alum hydrox/simeth 30ml oral suspension PO PRN (05:45)
[2021-06-25] MEDS ORDERED: ondansetron 4mg rapidly disintigrating tab PO PRN (05:45)
[2021-06-25] MEDS ORDERED: morphine 2 MG/ML inj. syringe IV PRN ×2 (05:45)
[2021-06-25] MEDS ORDERED: diphenhydrAMINE 25mg capsule PO PRN (05:45)
[2021-06-25] MEDS ORDERED: HYDROmorphone inj. 0.5 MG/0.5 ML DISP.SYRIN IV PRN (05:45)
[2021-06-25] MEDS ORDERED: magnesium hydroxide 30ml (MOM) UD suspension PO PRN (05:45)
[2021-06-25] MEDS ORDERED: acetaminophen 325mg tablet PO PRN ×2 (05:45)
[2021-06-25] MEDS ORDERED: acetaminophen 650mg rectal suppository RC PRN (05:45)
[2021-06-25] MEDS ORDERED: ondansetron/PF 4mg/2ml inj IV PRN (05:45)
[2021-06-25] MEDS ORDERED: vancomycin/NS 1 GM ADD-VANTAGE 250 ML IV ONE (06:10)
--- NOTE | 2021-06-25 06:30 | NUR ---
Problems reprioritized. Patient report given, questions answered & plan of care reviewed with CED Killian.
[2021-06-25] MEDS: normal saline 1000ml 1,000 ML IV SCH ×2 (06:56→16:07)
[2021-06-25 07:08] LABS: BASOPHILS # (AUTO) 0.1 X10'3 (0-0.2); BASOPHILS % (AUTO) 0.8 % (0-1); EOSINOPHILS # (AUTO) 0.3 X10'3 (0-0.9); EOSINOPHILS % (AUTO) 1.5 % (0-6); LYMPHOCYTES % (AUTO) 11.8 % (21-51); MEAN CORPUSCULAR HEMOGLOBIN 30.2 PG (27.0-31.0); MEAN CORPUSCULAR HGB CONC 33.4 g/dL (33.0-36.5); MEAN CORPUSCULAR VOLUME 90.4 FL (78-98); MEAN PLATELET VOLUME 6.7 FL (7.4-10.4); MONOCYTES # (AUTO) 1.9 X10'3 (0-0.9); MONOCYTES % (AUTO) 11.7 % (2-12); NEUTROPHILS # (AUTO) 12.3 X10'3 (1.8-7.7); NEUTROPHILS % (AUTO) 74.2 % (42-75); PLATELET COUNT 575 X10'3 (140-440); RED BLOOD COUNT 1.71 X10'6 (4.70-6.10); RED CELL DISTRIBUTION WIDTH 14.3 % (11.5-14.5); WHITE BLOOD COUNT 16.6 X10'3 (4.5-11.0)
--- NOTE | 2021-06-25 07:15 | NUR ---
Dr Cowan rounded orders obtained for wound care. Anticipate Pt will need approved for [place] for DC .
[2021-06-25 07:19] LABS: HEMATOCRIT 15.5 % (42.0-52.0); HEMOGLOBIN 5.2 g/dl (14.0-17.9)
[2021-06-25 07:22] LABS: PARTIAL THROMBOPLASTIN TIME 23 SECONDS (22-32)
--- NOTE | 2021-06-25 07:23 | NUR ---
PAGER ID: [phone] MESSAGE: David Bauer [id number] critical value H&h 5.2 and 15.5. Maria D [id number]
[2021-06-25 07:29] LABS: ALANINE AMINOTRANSFERASE 20 U/L (12-78); ALBUMIN 2.5 G/DL (3.4-5.0); ALBUMIN/GLOBULIN RATIO 0.6 (1.1-1.5); ALKALINE PHOSPHATASE 85 IU/L (46-116); ANION GAP 7 (8-16); ASPARTATE AMINO TRANSFERASE 16 U/L (10-37); BILIRUBIN,TOTAL 0.7 MG/DL (0.1-1.0); BLOOD UREA NITROGEN 20 MG/DL (7-18); BUN/CREATININE RATIO 15.2 (5.4-32.0); CALCIUM 8.3 MG/DL (8.5-10.1); CHLORIDE 106 MMOL/L (99-107); CREATININE 1.32 MG/DL (0.60-1.10); GLUCOSE 95 MG/DL (70-104); MAGNESIUM 2.4 MG/DL (1.5-2.4); PHOSPHORUS 3.6 MG/DL (2.3-4.5); POTASSIUM 4.4 MMOL/L (3.5-5.1); SODIUM 139 MMOL/L (135-145); TOTAL CARBON DIOXIDE 26.1 MMOL/L (24-32); TOTAL PROTEIN 6.7 G/DL (6.4-8.2); eGFR 54 ML/MIN
[2021-06-25 07:43] LABS: HEMOGLOBIN A1C 4.9 % (4.5-6.2)
[2021-06-25 08:00] VITALS: BP 161/101
[2021-06-25] MEDS: docusate sod 100mg capsule PO SCH ×2 (08:00→19:45)
[2021-06-25] MEDS ORDERED: vancomycin/NS 1 GM ADD-VANTAGE 250 ML IV SCH (08:00)
[2021-06-25] MEDS: HYDROcodone/acetaminophen 10/325mg tab PO PRN ×2 (10:25→16:09)
[2021-06-25] MEDS: pantoprazole 40 MG vial IV SCH (11:08)
[2021-06-25] MEDS: piperacillin/tazo 4.5gm/100ml 100 ML IV SCH ×2 (11:08→15:30)
[2021-06-25] MEDS ORDERED: FURO40TA4 PO (11:16)
[2021-06-25 11:26] LABS: HEMATOCRIT 28.8 % (42.0-52.0); HEMOGLOBIN 9.6 g/dl (14.0-17.9); MEAN CORPUSCULAR HEMOGLOBIN 30.2 PG (27.0-31.0); MEAN CORPUSCULAR HGB CONC 33.2 g/dL (33.0-36.5); MEAN CORPUSCULAR VOLUME 90.8 FL (78-98); MEAN PLATELET VOLUME 6.6 FL (7.4-10.4); PLATELET COUNT 396 X10'3 (140-440); RED BLOOD COUNT 3.17 X10'6 (4.70-6.10); RED CELL DISTRIBUTION WIDTH 14.4 % (11.5-14.5); WHITE BLOOD COUNT 11.5 X10'3 (4.5-11.0)
[2021-06-25 12:00] VITALS: BP 133/61
--- NOTE | 2021-06-25 15:49 | NUR ---
Called surgeon to clarify wound care orders. MD notified of firmness throughout abdomen. states just a loose thread to prevent clot is acceptable. Cannot see cavity to pack.
--- NOTE | 2021-06-25 19:00 | NUR ---
Patient in room ARI[facility] 347. I have received report from Maria D COUGHLIN and had the opportunity to ask questions and assume patient care.
[2021-06-25] MEDS: lactobacillus rhamnosus 10,000 MMU CELLS/CAPSULE PO SCH (19:45)
[2021-06-25] MEDS: Dakins solution (1/4 strength) 473ml solution TP SCH (19:45)
[2021-06-25 20:00] VITALS: BP 124/61
[2021-06-25] MEDS ORDERED: temazepam 15mg capsule PO PRN (21:00)
[2021-06-25] MEDS: vancomycin/NS 1 GM ADD-VANTAGE 250 ML IV SCH (22:25)
[2021-06-25 23:50] VITALS: BP 127/62
[2021-06-26] MEDS: piperacillin/tazo 4.5gm/100ml 100 ML IV SCH ×4 (00:47→23:59)
[2021-06-26] MEDS: HYDROcodone/acetaminophen 10/325mg tab PO PRN ×3 (01:56→22:35)
[2021-06-26] MEDS: normal saline 1000ml 1,000 ML IV SCH ×3 (04:59→17:29)
[2021-06-26 06:24] LABS: BASOPHILS % (AUTO) 0.6 % (0-1); EOSINOPHILS # (AUTO) 0.5 X10'3 (0-0.9); EOSINOPHILS % (AUTO) 6.3 % (0-6); HEMATOCRIT 29.3 % (42.0-52.0); LYMPHOCYTES # (AUTO) 1.3 X10'3 (1.1-4.8); LYMPHOCYTES % (AUTO) 17.1 % (21-51); MEAN CORPUSCULAR HEMOGLOBIN 30.6 PG (27.0-31.0); MEAN CORPUSCULAR VOLUME 89.8 FL (78-98); MEAN PLATELET VOLUME 6.4 FL (7.4-10.4); MONOCYTES # (AUTO) 0.6 X10'3 (0-0.9); MONOCYTES % (AUTO) 8.5 % (2-12); NEUTROPHILS # (AUTO) 5.1 X10'3 (1.8-7.7); NEUTROPHILS % (AUTO) 67.5 % (42-75); PLATELET COUNT 389 X10'3 (140-440); RED BLOOD COUNT 3.27 X10'6 (4.70-6.10); RED CELL DISTRIBUTION WIDTH 14.3 % (11.5-14.5); WHITE BLOOD COUNT 7.5 X10'3 (4.5-11.0)
[2021-06-26 06:35] LABS: ALANINE AMINOTRANSFERASE 17 U/L (12-78); ALBUMIN 2.3 G/DL (3.4-5.0); ALBUMIN/GLOBULIN RATIO 0.5 (1.1-1.5); ALKALINE PHOSPHATASE 107 IU/L (46-116); ANION GAP 7 (8-16); ASPARTATE AMINO TRANSFERASE 14 U/L (10-37); BILIRUBIN,TOTAL 0.4 MG/DL (0.1-1.0); BLOOD UREA NITROGEN 19 MG/DL (7-18); BUN/CREATININE RATIO 14.1 (5.4-32.0); CALCIUM 8.6 MG/DL (8.5-10.1); CHLORIDE 107 MMOL/L (99-107); CHOL/HDL RATIO 3.9 (0.00-4.99); CHOLESTEROL 152 MG/DL (0-200); CREATININE 1.35 MG/DL (0.60-1.10); GLUCOSE 100 MG/DL (70-104); HDL CHOLESTEROL 39 MG/DL (35-60); LDL CHOLESTEROL 90 MG/DL (50-100); POTASSIUM 4.4 MMOL/L (3.5-5.1); SODIUM 141 MMOL/L (135-145); TOTAL CARBON DIOXIDE 26.9 MMOL/L (24-32); TOTAL PROTEIN 6.7 G/DL (6.4-8.2); TRIGLYCERIDES 101 MG/DL (20-135); eGFR 53 ML/MIN
--- NOTE | 2021-06-26 06:36 | NUR ---
Problems reprioritized. Patient report given, questions answered & plan of care reviewed with Chelsea COUGHLIN.
--- NOTE | 2021-06-26 06:52 | NUR ---
Patient in room ARIAN 347. I have received report from jane house and had the opportunity to ask questions and assume patient care.
[2021-06-26] MEDS: lactobacillus rhamnosus 10,000 MMU CELLS/CAPSULE PO SCH ×2 (07:46→20:26)
[2021-06-26] MEDS: pantoprazole 40 MG vial IV SCH (07:47)
[2021-06-26] MEDS: docusate sod 100mg capsule PO SCH ×2 (07:47→20:26)
[2021-06-26 08:00] VITALS: BP 116/65
[2021-06-26] MEDS: Dakins solution (1/4 strength) 473ml solution TP SCH ×2 (08:04→20:00)
[2021-06-26] MEDS: vancomycin/NS 1 GM ADD-VANTAGE 250 ML IV SCH ×2 (09:11→20:38)
[2021-06-26 11:00] VITALS: BP 111/76
[2021-06-26 19:00] VITALS: BP 117/58
[2021-06-26] MEDS: LIDOCAINE 5% OINTMENT 35GM TP SCH (20:26)
[2021-06-26] MEDS ORDERED: VANCOMYCIN LEVEL IV ONE (20:30)
[2021-06-27] VITALS (18 sets, daily range): BP systolic 101–162; BP diastolic 59–108
--- NOTE | 2021-06-27 05:24 | NUR ---
Student documentation: I have reviewed and agree with all interventions, assessments performed and documented by [Walter CORONADO]. Student Medication Administration: For this medication-pass time frame, all medication were reviewed, dispensed, administered and documented per hospital policy by [Walter CORONADO].
[2021-06-27] MEDS ORDERED: BUPIVAcaine/PF 2.5 mg/ml (0.25%) 30ml vial ONE (05:34)
[2021-06-27] MEDS: normal saline 1000ml 1,000 ML IV SCH ×2 (05:36→16:48)
[2021-06-27 06:38] LABS: BASOPHILS % (AUTO) 0.8 % (0-1); EOSINOPHILS # (AUTO) 0.5 X10'3 (0-0.9); EOSINOPHILS % (AUTO) 8.2 % (0-6); HEMATOCRIT 29.2 % (42.0-52.0); HEMOGLOBIN 9.9 g/dl (14.0-17.9); LYMPHOCYTES # (AUTO) 1.2 X10'3 (1.1-4.8); LYMPHOCYTES % (AUTO) 21.6 % (21-51); MEAN CORPUSCULAR HEMOGLOBIN 29.9 PG (27.0-31.0); MEAN CORPUSCULAR HGB CONC 33.8 g/dL (33.0-36.5); MEAN CORPUSCULAR VOLUME 88.6 FL (78-98); MEAN PLATELET VOLUME 6.7 FL (7.4-10.4); MONOCYTES # (AUTO) 0.5 X10'3 (0-0.9); MONOCYTES % (AUTO) 9.1 % (2-12); NEUTROPHILS # (AUTO) 3.4 X10'3 (1.8-7.7); NEUTROPHILS % (AUTO) 60.3 % (42-75); PLATELET COUNT 367 X10'3 (140-440); WHITE BLOOD COUNT 5.7 X10'3 (4.5-11.0)
[2021-06-27 07:21] LABS: ALANINE AMINOTRANSFERASE 17 U/L (12-78); ALBUMIN 2.4 G/DL (3.4-5.0); ALBUMIN/GLOBULIN RATIO 0.6 (1.1-1.5); ALKALINE PHOSPHATASE 75 IU/L (46-116); ANION GAP 9 (8-16); ASPARTATE AMINO TRANSFERASE 18 U/L (10-37); BILIRUBIN,TOTAL 0.4 MG/DL (0.1-1.0); BLOOD UREA NITROGEN 15 MG/DL (7-18); CALCIUM 8.6 MG/DL (8.5-10.1); CHLORIDE 108 MMOL/L (99-107); CREATININE 1.25 MG/DL (0.60-1.10); GLUCOSE 94 MG/DL (70-104); POTASSIUM 4.4 MMOL/L (3.5-5.1); SODIUM 142 MMOL/L (135-145); TOTAL CARBON DIOXIDE 24.8 MMOL/L (24-32); TOTAL PROTEIN 6.7 G/DL (6.4-8.2); eGFR 58 ML/MIN
[2021-06-27] MEDS: Dakins solution (1/4 strength) 473ml solution TP SCH ×2 (07:44→20:00)
[2021-06-27] MEDS: pantoprazole 40mg Tablet.DR PO SCH (07:52)
[2021-06-27] MEDS: docusate sod 100mg capsule PO SCH ×2 (07:52→20:00)
[2021-06-27] MEDS: lactobacillus rhamnosus 10,000 MMU CELLS/CAPSULE PO SCH ×2 (07:52→21:10)
[2021-06-27] MEDS: piperacillin/tazo 4.5gm/100ml 100 ML IV SCH ×3 (07:52→23:22)
[2021-06-27] MEDS: LIDOCAINE 5% OINTMENT 35GM TP SCH ×2 (08:10→20:00)
[2021-06-27] MEDS: VANCOmycin 1250MG/NS 250ml Bag 250 ML IV SCH ×2 (10:54→21:11)
--- NOTE | 2021-06-27 12:57 | NUR ---
pt to OR via bed report given to Rosalee COUGHLIN
[2021-06-27] MEDS ORDERED: flumazenil 0.1 mg/ml inj. IV ONE (13:17)
[2021-06-27] MEDS ORDERED: sevoflurane 250ml liquid IH ONE (13:17)
[2021-06-27] MEDS ORDERED: ondansetron/PF 4mg/2ml inj ONE (13:17)
[2021-06-27] MEDS ORDERED: midazolam 1 mg/ML 2ml injection ONE (13:18)
[2021-06-27] MEDS ORDERED: fentaNYL/PF 50MCG/1 ML 2ML syringe ONE (13:18)
[2021-06-27] MEDS ORDERED: meperidine/PF 25mg/ml syringe IV PRN ×3 (13:45)
[2021-06-27] MEDS ORDERED: morphine 2 MG/ML inj. syringe IV PRN (13:45)
[2021-06-27] MEDS ORDERED: morphine 4 MG/ML inj SYRINge IV PRN (13:45)
[2021-06-27] MEDS ORDERED: ondansetron/PF 4mg/2ml inj IV PRN (13:45)
[2021-06-27] MEDS ORDERED: ringers solution, lacted 1,000 ML IV SCH (13:45)
[2021-06-27] MEDS ORDERED: proCHLORperazine 10 MG/2 ml inj IV PRN (13:45)
[2021-06-27] MEDS ORDERED: propofol inj 20 ML IV ONE (13:54)
[2021-06-27] MEDS ORDERED: rocuronium 10mg/ml inj IV ONE (13:54)
[2021-06-27] MEDS ORDERED: LIDOcaine 2% (20mg/ml) 5ml vial ONE (13:54)
[2021-06-27] MEDS ORDERED: sugammadex 200mg/2ml injection IV ONE ×2 (13:55)
--- NOTE | 2021-06-27 14:20 | NUR ---
Received from OR via , accompanied by Anesthesiologist DR AGUILAR and report given by Anesthesiolgist. PT PRESENTS WITH 20 G RIGHT FOREARM, ABD DRESSSING DRY AND INTACT WITH WOUND VAC. VSS Addendum: 06/27/21 at 1436 by Sarah Romero RN, RN Amended: Links added.
[2021-06-27] MEDS ORDERED: ipratropium/albuterol 3ml nebule NEB PRN (14:25)
--- NOTE | 2021-06-27 14:51 | NUR ---
received report from Sarah in recovery, Pt returning to room via bed.
--- NOTE | 2021-06-27 15:00 | NUR ---
Report called to receiving nurse OANH COUGHLIN. Transferred via HOSPITAL BED, PT SENT TO ROOM 347B WITH GLASSES, OTHER Belongings WERE LEFT IN [facility]'S ROOM 347B. BED LOCKED AND IN LOW POSITION, WITH CALL LIGHT IN REACH. OANH COUGHLIN AT BEDSIDE TO ERASTO PT. . Special Issues communicated to receiving nurse. Addendum: 06/27/21 at 1510 by Sarah Romero RN RN Amended: Links added.
--- NOTE | 2021-06-27 18:30 | NUR ---
Patient in room ARIAN 347. I have received report from Zeenat COUGHLIN and had the opportunity to ask questions and assume patient care.
--- NOTE | 2021-06-27 18:42 | NUR ---
Problems reprioritized. Patient report given, questions answered & plan of care reviewed with CED Nava.
[2021-06-27] MEDS: HYDROcodone/acetaminophen 10/325mg tab PO PRN (21:34)
--- NOTE | 2021-06-27 22:30 | NUR ---
Jv not needed now as patient has a wound vac.
[2021-06-28] VITALS: BP 118/58
[2021-06-28] MEDS: HYDROcodone/acetaminophen 5mg/325mg tablet PO PRN ×4 (01:52→22:14)
[2021-06-28] MEDS: normal saline 1000ml 1,000 ML IV SCH (03:45)
[2021-06-28 05:00] VITALS: BP 128/67
--- NOTE | 2021-06-28 06:10 | NUR ---
Problems reprioritized. Patient report given, questions answered & plan of care reviewed with Ivan RN.
[2021-06-28 06:11] LABS: BASOPHILS % (AUTO) 0.6 % (0-1); EOSINOPHILS # (AUTO) 0.4 X10'3 (0-0.9); EOSINOPHILS % (AUTO) 6.6 % (0-6); HEMATOCRIT 29.6 % (42.0-52.0); HEMOGLOBIN 9.9 g/dl (14.0-17.9); LYMPHOCYTES # (AUTO) 1.5 X10'3 (1.1-4.8); LYMPHOCYTES % (AUTO) 23.1 % (21-51); MEAN CORPUSCULAR HEMOGLOBIN 29.6 PG (27.0-31.0); MEAN CORPUSCULAR HGB CONC 33.4 g/dL (33.0-36.5); MEAN CORPUSCULAR VOLUME 88.8 FL (78-98); MEAN PLATELET VOLUME 6.6 FL (7.4-10.4); MONOCYTES # (AUTO) 0.7 X10'3 (0-0.9); MONOCYTES % (AUTO) 10.2 % (2-12); NEUTROPHILS # (AUTO) 3.8 X10'3 (1.8-7.7); NEUTROPHILS % (AUTO) 59.5 % (42-75); PLATELET COUNT 423 X10'3 (140-440); RED BLOOD COUNT 3.33 X10'6 (4.70-6.10); RED CELL DISTRIBUTION WIDTH 14.6 % (11.5-14.5); WHITE BLOOD COUNT 6.4 X10'3 (4.5-11.0)
--- NOTE | 2021-06-28 06:30 | NUR ---
Patient in room [facility] 347. I have received report from Brandy COUGHLIN and had the opportunity to ask questions and assume patient care.
--- NOTE | 2021-06-28 06:38 | NUR ---
Patient in room 347b is a hard stick, 4 trys at getting patient iv access with no success. Need help. Thanks. this page sent to Pic[facility] nurse.
[2021-06-28] MEDS: pantoprazole 40mg Tablet.DR PO SCH (07:23)
[2021-06-28] MEDS: lactobacillus rhamnosus 10,000 MMU CELLS/CAPSULE PO SCH ×2 (07:23→20:10)
[2021-06-28] MEDS: docusate sod 100mg capsule PO SCH ×2 (07:24→20:10)
[2021-06-28] MEDS: LIDOCAINE 5% OINTMENT 35GM TP SCH ×2 (07:25→20:10)
[2021-06-28 08:00] VITALS: BP 116/53
[2021-06-28] MEDS: Dakins solution (1/4 strength) 473ml solution TP SCH ×2 (08:00→20:00)
[2021-06-28] MEDS: VANCOmycin 1250MG/NS 250ml Bag 250 ML IV SCH ×3 (09:16→22:15)
--- NOTE | 2021-06-28 09:16 | NUR ---
Dr Leal waiting for patients wound culture results to come back. Per Dr Leal possible discharge tomorrow. Per Dr Leal ok to have wound care change wound vac today so we can get measurements for home wound vac approval. Spoke to Mary with wound care and she will notify the in patient wound RNRudi Barraza with case management aware.
[2021-06-28 11:00] VITALS: BP 159/74
[2021-06-28 11:08] LABS: ALBUMIN 2.3 G/DL (3.4-5.0); ANION GAP 9 (8-16); BLOOD UREA NITROGEN 13 MG/DL (7-18); BUN/CREATININE RATIO 8.2 (5.4-32.0); CALCIUM 8.3 MG/DL (8.5-10.1); CHLORIDE 108 MMOL/L (99-107); CREATININE 1.58 MG/DL (0.60-1.10); GLUCOSE 112 MG/DL (70-104); POTASSIUM 4.2 MMOL/L (3.5-5.1); SODIUM 143 MMOL/L (135-145); TOTAL CARBON DIOXIDE 26.2 MMOL/L (24-32); eGFR 44 ML/MIN
[2021-06-28 11:21] LABS: ALANINE AMINOTRANSFERASE 19 U/L (12-78); ALBUMIN/GLOBULIN RATIO 0.6 (1.1-1.5); ALKALINE PHOSPHATASE 63 IU/L (46-116); ASPARTATE AMINO TRANSFERASE 15 U/L (10-37); BILIRUBIN,TOTAL 0.3 MG/DL (0.1-1.0); TOTAL PROTEIN 6.4 G/DL (6.4-8.2)
[2021-06-28] MEDS: piperacillin/tazo 4.5gm/100ml 100 ML IV SCH ×2 (11:24→16:42)
--- NOTE | 2021-06-28 15:25 | NUR ---
Student documentation: I have reviewed and agree with all interventions, assessments performed and documented by Alice CORONADO.
--- NOTE | 2021-06-28 17:05 | NUR ---
WOUND VAC EDUCATION PROVIDED BY WOUND CARE 1. Patient instructed to call the Wound Center or their Home Health Agency immediately if: * They notice a change in the color or amount of the fluid in the canister. * Their wound looks more red than usual or has a foul smell. * The skin around their wound looks reddened or irritated. * The dressing feels loose or appears to be loose. * They experience any increase or changes in their pain. * The alarm will not turn off. 2. Patient instructed that they should not be disconnected from suction for more than 2 hours at a time. * If they are not able to get the suction back on, they need to remove the dressing and take all of the foam out of the wound. * Then moisten sterile gauze with normal saline and place on/in the wound. * Change the dressing once a day until arrangements have been made to replace the wound vac dressing. 3. Patient instructed to turn the wound vac machine OFF and call 911 or go to the ED immediately if their canister fills rapidly with blood. 4. If any of these occur while in the hospital tell a nurse immediately. Addendum: 06/28/21 at 1706 by Chey Littlejohn RN Amended: Links added.
--- NOTE | 2021-06-28 17:06 | NUR ---
WOUND INFECTION EDUCATION PROVIDED BY WOUND CARE 1. Patient instructed to call their primary doctor, or go the ED immediately if any of the following symptoms occur: * Increased pain in wound * Increase in drainage from the wound * Redness in the skin surrounding the wound * Warmth in the skin surrounding the wound * Bleeding from the wound * Temperature of 101 or greater 2. If any of these occur while in the hospital tell a nurse immediately. Addendum: 06/28/21 at 1706 by Chey Littlejohn RN Amended: Links added.
--- NOTE | 2021-06-28 18:18 | NUR ---
Problems reprioritized. Patient report given, questions answered & plan of care reviewed with Brandy COUGHLIN.
--- NOTE | 2021-06-28 18:20 | NUR ---
Patient in room [facility] 347. I have received report from Ivan COUGHLIN and had the opportunity to ask questions and assume patient care.
[2021-06-28 19:00] VITALS: BP 106/56
[2021-06-28] MEDS ORDERED: VANCOMYCIN LEVEL IV ONE (21:30)
--- NOTE | 2021-06-28 22:26 | NUR ---
Vanco trough came back at 25.1 . Called pharmacy and was instructed to hold this dose. Took down the antibiotic.
[2021-06-29] VITALS: BP 117/61
[2021-06-29] MEDS: piperacillin/tazo 4.5gm/100ml 100 ML IV SCH ×2 (00:20→08:00)
[2021-06-29 06:01] LABS: BASOPHILS % (AUTO) 0.9 % (0-1); EOSINOPHILS # (AUTO) 0.5 X10'3 (0-0.9); EOSINOPHILS % (AUTO) 8.6 % (0-6); HEMATOCRIT 27.3 % (42.0-52.0); HEMOGLOBIN 9.1 g/dl (14.0-17.9); LYMPHOCYTES % (AUTO) 19.4 % (21-51); MEAN CORPUSCULAR HEMOGLOBIN 29.6 PG (27.0-31.0); MEAN CORPUSCULAR HGB CONC 33.3 g/dL (33.0-36.5); MEAN PLATELET VOLUME 6.4 FL (7.4-10.4); MONOCYTES # (AUTO) 0.6 X10'3 (0-0.9); MONOCYTES % (AUTO) 12.1 % (2-12); NEUTROPHILS # (AUTO) 3.1 X10'3 (1.8-7.7); PLATELET COUNT 331 X10'3 (140-440); RED BLOOD COUNT 3.07 X10'6 (4.70-6.10); RED CELL DISTRIBUTION WIDTH 14.5 % (11.5-14.5); WHITE BLOOD COUNT 5.3 X10'3 (4.5-11.0)
[2021-06-29 06:16] LABS: ALANINE AMINOTRANSFERASE 19 U/L (12-78); ALBUMIN 2.3 G/DL (3.4-5.0); ALBUMIN/GLOBULIN RATIO 0.5 (1.1-1.5); ALKALINE PHOSPHATASE 60 IU/L (46-116); ANION GAP 8 (8-16); ASPARTATE AMINO TRANSFERASE 16 U/L (10-37); BILIRUBIN,TOTAL 0.3 MG/DL (0.1-1.0); BLOOD UREA NITROGEN 14 MG/DL (7-18); BUN/CREATININE RATIO 6.4 (5.4-32.0); CALCIUM 8.6 MG/DL (8.5-10.1); CHLORIDE 109 MMOL/L (99-107); CREATININE 2.19 MG/DL (0.60-1.10); GLUCOSE 94 MG/DL (70-104); POTASSIUM 4.2 MMOL/L (3.5-5.1); SODIUM 144 MMOL/L (135-145); TOTAL PROTEIN 6.5 G/DL (6.4-8.2); eGFR 30 ML/MIN
--- NOTE | 2021-06-29 06:30 | NUR ---
Patient in room [facility] 347. I have received report from Brandy COUGHLIN and had the opportunity to ask questions and assume patient care.
--- NOTE | 2021-06-29 06:40 | NUR ---
Patient in room [facility] 347. I have received report from Brandy COUGHLIN and had the opportunity to ask questions and assume patient care.
[2021-06-29 07:32] VITALS: BP 117/74
[2021-06-29] MEDS: pantoprazole 40mg Tablet.DR PO SCH (07:55)
[2021-06-29] MEDS: lactobacillus rhamnosus 10,000 MMU CELLS/CAPSULE PO SCH ×2 (07:55→20:11)
[2021-06-29] MEDS: docusate sod 100mg capsule PO SCH ×2 (07:55→20:10)
[2021-06-29] MEDS: LIDOCAINE 5% OINTMENT 35GM TP SCH ×2 (07:56→20:11)
[2021-06-29] MEDS: vancomycin/NS 1 GM ADD-VANTAGE 250 ML IV SCH ×2 (07:56→20:11)
[2021-06-29] MEDS: Dakins solution (1/4 strength) 473ml solution TP SCH ×2 (07:58→20:00)
[2021-06-29 13:09] VITALS: BP 123/65
[2021-06-29] MEDS: normal saline 1000ml 1,000 ML IV SCH ×2 (14:16→22:36)
--- NOTE | 2021-06-29 17:30 | NUR ---
Student documentation: I have reviewed and agree with all interventions, assessments performed and documented by Angelito CORONADO.
--- NOTE | 2021-06-29 18:30 | NUR ---
Patient in room [facility] 347. I have received report from Ivan COUGHLIN and nursing information systems coordinator Domenic and had the opportunity to ask questions and assume patient care.
--- NOTE | 2021-06-29 18:50 | NUR ---
Problems reprioritized. Patient report given, questions answered & plan of care reviewed with Brandy COUGHLIN.
[2021-06-29 20:00] VITALS: BP 158/74
[2021-06-29] MEDS: HYDROcodone/acetaminophen 10/325mg tab PO PRN (20:10)
[2021-06-30] VITALS: BP 145/56
--- NOTE | 2021-06-30 06:30 | NUR ---
Problems reprioritized. Patient report given, questions answered & plan of care reviewed with Maria D COUGHLIN.
[2021-06-30] MEDS: vancomycin/NS 1 GM ADD-VANTAGE 250 ML IV SCH (06:47)
[2021-06-30] MEDS: pantoprazole 40mg Tablet.DR PO SCH (06:47)
[2021-06-30] MEDS: lactobacillus rhamnosus 10,000 MMU CELLS/CAPSULE PO SCH (06:48)
[2021-06-30] MEDS: docusate sod 100mg capsule PO SCH (06:48)
[2021-06-30] MEDS: LIDOCAINE 5% OINTMENT 35GM TP SCH (06:48)
[2021-06-30] MEDS: Dakins solution (1/4 strength) 473ml solution TP SCH (06:49)
[2021-06-30 06:58] LABS: ALANINE AMINOTRANSFERASE 18 U/L (12-78); ALBUMIN 2.4 G/DL (3.4-5.0); ALBUMIN/GLOBULIN RATIO 0.6 (1.1-1.5); ALKALINE PHOSPHATASE 61 IU/L (46-116); ANION GAP 9 (8-16); ASPARTATE AMINO TRANSFERASE 19 U/L (10-37); BILIRUBIN,TOTAL 0.3 MG/DL (0.1-1.0); BLOOD UREA NITROGEN 16 MG/DL (7-18); BUN/CREATININE RATIO 9.8 (5.4-32.0); CALCIUM 8.6 MG/DL (8.5-10.1); CHLORIDE 109 MMOL/L (99-107); CREATININE 1.63 MG/DL (0.60-1.10); GLUCOSE 95 MG/DL (70-104); SODIUM 143 MMOL/L (135-145); TOTAL CARBON DIOXIDE 24.7 MMOL/L (24-32); TOTAL PROTEIN 6.2 G/DL (6.4-8.2); eGFR 43 ML/MIN
[2021-06-30 07:00] VITALS: BP 149/81
[2021-06-30 07:14] LABS: BASOPHILS # (AUTO) 0.1 X10'3 (0-0.2); EOSINOPHILS # (AUTO) 0.4 X10'3 (0-0.9); EOSINOPHILS % (AUTO) 7.9 % (0-6); HEMOGLOBIN 8.8 g/dl (14.0-17.9); LYMPHOCYTES % (AUTO) 18.8 % (21-51); MEAN CORPUSCULAR HEMOGLOBIN 29.9 PG (27.0-31.0); MEAN CORPUSCULAR VOLUME 87.9 FL (78-98); MEAN PLATELET VOLUME 6.3 FL (7.4-10.4); MONOCYTES # (AUTO) 0.6 X10'3 (0-0.9); MONOCYTES % (AUTO) 11.5 % (2-12); NEUTROPHILS # (AUTO) 3.3 X10'3 (1.8-7.7); NEUTROPHILS % (AUTO) 60.8 % (42-75); PLATELET COUNT 342 X10'3 (140-440); RED BLOOD COUNT 2.96 X10'6 (4.70-6.10); RED CELL DISTRIBUTION WIDTH 14.6 % (11.5-14.5); WHITE BLOOD COUNT 5.4 X10'3 (4.5-11.0)
[2021-06-30] MEDS: normal saline 1000ml 1,000 ML IV SCH (07:28)
[2021-06-30] MEDS ORDERED: AMOX500C2 PO (10:21)
--- NOTE | 2021-06-30 10:48 | NUR ---
Wound vac in place Addendum: 06/30/21 at 1049 by Maria D Johns RN Amended: Links added.
--- NOTE | 2021-06-30 10:50 | NUR ---
Called [facility] to clarify discharge and receive discharge precautions. No answer, left voicemail with contact information.
--- NOTE | 2021-06-30 11:00 | NUR ---
Called [facility] office. clarified discharge and gave instructions for f/u as well as no lifting precaution and ok to shower order.
--- NOTE | 2021-06-30 11:25 | NUR ---
PAGER ID: [phone] MESSAGE: David Bauer 347B Pt. states you were going to order Augmentin and the generic you ordered for discharge is Amoxicillin trihydrate not amoxicillin clavulanic acid. Please clarify, Thank you Maria D [phone]
--- NOTE | 2021-06-30 11:45 | NUR ---
DISCHARGE NOTE: Reviewed discharge paperwork with pt. and pt's . They both had several opportunities to ask questions. Reviewed discharge medications and possible ASE with pt. and pt. . Medication e-scripted to pt's preferred pharmacy. IV DC'd, cannula intact, no s/sx bleeding, pressure bandage applied. Pt. met with wound care and extensive education provided to pt. and pt's on wound vac and how to change dressing and what to do if wound vac is not working. Extra supplies provided to pt. Pt. and also educated on 2 hour window for wound vac not working time and to always have wound vac plugged in if possible. Pt. knows to f/u with [facility], PCP, and wound care on Monday. Pt. has written contact information for each. Pt. knows to discuss CMP and Lasix with PCP. Pt. does not c/o any pain at the time. Home wound vac placed on pt. gathered pt's belongings and took them down to her car. Pt. was dressed and wheeled down to her car by a staff member to discharge home.
--- NOTE | 2021-06-30 14:42 | NUR ---
WOUND VAC EDUCATION PROVIDED BY WOUND CARE 1. Patient instructed to call the Wound Center or their Home Health Agency immediately if: * They notice a change in the color or amount of the fluid in the canister. * Their wound looks more red than usual or has a foul smell. * The skin around their wound looks reddened or irritated. * The dressing feels loose or appears to be loose. * They experience any increase or changes in their pain. * The alarm will not turn off. 2. Patient instructed that they should not be disconnected from suction for more than 2 hours at a time. * If they are not able to get the suction back on, they need to remove the dressing and take all of the foam out of the wound. * Then moisten sterile gauze with normal saline and place on/in the wound. * Change the dressing once a day until arrangements have been made to replace the wound vac dressing. 3. Patient instructed to turn the wound vac machine OFF and call 911 or go to the ED immediately if their canister fills rapidly with blood. 4. If any of these occur while in the hospital tell a nurse immediately. Addendum: 06/30/21 at 1442 by Prem Russell RN Amended: Links added.
[2021-06-30] MEDS ORDERED: VANCOMYCIN LEVEL IV ONE (18:30)
[2021-07-01] MEDS ORDERED: DOXY100C2 PO (08:30)
== END 2021-06-30 11:37 | disposition home or self-care (01) | DRG 857 ==
LOC: SUR 3N 03:24 → UNDOADMIN 03:24 → SUR 3N 05:50
PROVIDERS: ADMIT Family Medicine; ATTEND Family Medicine
PROC: BW211ZZ Computerized Tomography (CT Scan) of Abdomen and Pelvis using Low Osmolar Contrast (ICD-10-PCS; 2021-06-26)
PROC: 0W9F0ZZ Drainage of Abdominal Wall, Open Approach (ICD-10-PCS; principal; 2021-06-27 13:17)
DX: T81.41XA Infection following a procedure, superficial incisional surgical site, initial encounter (principal); L02.211 Cutaneous abscess of abdominal wall; N17.9 Acute kidney failure, unspecified; I13.0 Hypertensive heart and chronic kidney disease with heart failure and stage 1 through stage 4 chronic kidney disease, or unspecified chronic kidney disease; I50.32 Chronic diastolic (congestive) heart failure; L03.311 Cellulitis of abdominal wall; Z68.41 Body mass index [BMI] 40.0-44.9, adult; B95.2 Enterococcus as the cause of diseases classified elsewhere; Y83.8 Other surgical procedures as the cause of abnormal reaction of the patient, or of later complication, without mention of misadventure at the time of the procedure; Z20.822 Contact with and (suspected) exposure to COVID-19; E66.9 Obesity, unspecified; D64.9 Anemia, unspecified; E78.5 Hyperlipidemia, unspecified; N18.9 Chronic kidney disease, unspecified; J44.9 Chronic obstructive pulmonary disease, unspecified; Z88.2 Allergy status to sulfonamides; Z79.899 Other long term (current) drug therapy; Y92.89 Other specified places as the place of occurrence of the external cause
CPT/HCPCS: 36415; 74176; 76937; 80053; 80061; 80202; 82948; 83036; 83605; 83735; 83880; 84100; 85025; 85027; 85610; 85730; 86885; 86900; 86901; 86920; 87040; 87070; 87075; 87077; 87186; 87635; 93005; 94640; 94760; A4618; A6550; A7000; C9113; C9399; G0378; J2001; J2250; J2405; J2543; J2704; J3010; J3370; J3490; J7030

== ENCOUNTER 2021-07-03 00:51 | Emergency (ER) | payer MEDICARE, OTHER ==
[~2021-07-03] VITALS: Ht 185.4 cm; Wt 120.4 kg
[~2021-07-03 00:51] MED LIST changes: +AMOX500C2 PO; -CEPH500C2 PO; -DICL-211 PO; +DOXY100C2 PO; -LISI40TA13 PO; -OMEP40CA21 PO
[2021-07-03 01:35] VITALS: BP 167/90
== END 2021-07-03 02:37 | disposition home or self-care (01) ==
LOC: ER 00:52
DX: S30.92XD Unspecified superficial injury of abdominal wall, subsequent encounter (principal); K65.1 Peritoneal abscess; I10 Essential (primary) hypertension; Z98.890 Other specified postprocedural states; Z88.2 Allergy status to sulfonamides; Z79.2 Long term (current) use of antibiotics; Z79.899 Other long term (current) drug therapy; X58.XXXD Exposure to other specified factors, subsequent encounter
CPT/HCPCS: 99281